=== PATIENT | female | born 1980 | race Two or more races ===

== ENCOUNTER 2024-08-12 11:55 | Outpatient (CLI) | payer OTHER ==
[~2024-08-12 11:55] MED LIST: NEXIUM40 M1 PO; ZOLOFT25 MG PO
[2024-08-12 13:08] LABS: CREATININE SERUM 0.72 mg/dL (0.55-1.02)
== END 2024-08-12 15:11 | disposition home or self-care (01) ==
LOC: LAB 11:55
DX: N17.9 Acute kidney failure, unspecified (principal)

== ENCOUNTER 2024-08-13 08:16 | Outpatient (CLI) | payer OTHER | END 2024-08-13 08:27 | disposition home or self-care (01) | LOC: TOM 08:16 | PROVIDERS: ATTEND Internal Medicine Gastroenterology | DX: K52.9 Noninfective gastroenteritis and colitis, unspecified (principal); R10.9 Unspecified abdominal pain ==